=== PATIENT | female | born 1970 | race Caucasian/White ===

== ENCOUNTER 2017-09-18 07:23 | Emergency (ER) | payer MEDICAID ==
[~2017-09-18] VITALS: Ht 182.9 cm; Wt 74.8 kg
[~2017-09-18 07:23] MED LIST: BACTRIM DS TAB1 EACH PO; CLEOCIN HCL300 MG PO; CLONAZEPAM 0.50.5 M1 PO; FLEXERIL PO; HYDROCODONE-AP1 EAC6 PO; IBUPROFEN 800800 M1 PO; KEFLEX500 MG PO; NORCO 5-325 TA1 EAC1 PO; NORCO 5-325 TA1 EACH PO; NORFLEX100 MG PO; ROXICODONE5 M1 PO; SEROQUEL200 MG
[2017-09-18] MEDS ORDERED: CLEOCIN HCL150 MG PO (08:28)
[2017-09-18] MEDS ORDERED: IBUPROFEN 800800 M1 PO (08:28)
[2017-09-18 08:59] VITALS: BP 150/89
== END 2017-09-18 09:00 | disposition home or self-care (01) ==
LOC: M.ERS 07:23
DX: K04.7 Periapical abscess without sinus (principal); F31.9 Bipolar disorder, unspecified; F41.9 Anxiety disorder, unspecified; Z86.14 Personal history of Methicillin resistant Staphylococcus aureus infection; Z88.6 Allergy status to analgesic agent

== ENCOUNTER 2017-11-07 19:53 | Emergency (ER) | payer MEDICAID ==
[~2017-11-07] VITALS: Ht 182.9 cm; Wt 74.8 kg
[~2017-11-07 19:53] MED LIST changes: +CLEOCIN HCL150 MG PO
[2017-11-07] MEDS ORDERED: CLEOCIN HCL150 MG PO (20:20)
[2017-11-07] MEDS ORDERED: NORCO 5-325 TA1 EACH PO ×2 (20:20→20:24)
[2017-11-07] MEDS ORDERED: IBUPROFEN 800800 MG PO (20:21)
[2017-11-07 20:39] VITALS: BP 142/99
== END 2017-11-07 20:40 | disposition home or self-care (01) ==
LOC: M.ERS 19:53
DX: K08.89 Other specified disorders of teeth and supporting structures (principal); R22.0 Localized swelling, mass and lump, head; F32.9 Major depressive disorder, single episode, unspecified; F41.9 Anxiety disorder, unspecified; F17.200 Nicotine dependence, unspecified, uncomplicated; Z86.14 Personal history of Methicillin resistant Staphylococcus aureus infection; Z98.890 Other specified postprocedural states; Z88.6 Allergy status to analgesic agent

== ENCOUNTER 2017-11-18 10:19 | Emergency (ER) | payer MEDICAID ==
[~2017-11-18] VITALS: Ht 182.9 cm; Wt 77.1 kg
[~2017-11-18 10:19] MED LIST changes: +IBUPROFEN 800800 MG PO
[2017-11-18 10:25] VITALS: BP 123/81
[2017-11-18] MEDS ORDERED: NORCO 5-325 TA1 EACH PO (10:33)
[2017-11-18] MEDS ORDERED: CLEOCIN HCL150 MG PO (10:33)
== END 2017-11-18 10:41 | disposition home or self-care (01) ==
LOC: M.ERS 10:19
DX: K02.9 Dental caries, unspecified (principal); K04.7 Periapical abscess without sinus